=== PATIENT | female | born 1960 | race Caucasian/White ===

== ENCOUNTER 2017-03-05 16:09 | Inpatient (IN) | payer OTHER, MEDICAID ==
[~2017-03-05] VITALS: Ht 165.1 cm; Wt 88.5 kg
[2017-03-05] MEDS ORDERED: HYDROmorphone HCL 2 MG/ML VL IV ONE (18:15)
[2017-03-05] MEDS ORDERED: TETANUS-DIPTH-ACEL PERTUSSIS 0.5ML SYRG IM ONE (18:15)
[2017-03-05] MEDS ORDERED: VANCOMYCIN 1GM/250ML 250 ML IV ONE (18:15)
[2017-03-05] MEDS ORDERED: PIPERACILLIN-TAZOB 3.375GM 100 ML IV ONE (18:15)
[2017-03-05] MEDS ORDERED: ONDANSETRON HCL 4 MG/2 ML VIAL IV ONE (18:15)
[2017-03-05] MEDS ORDERED: LACTULOSE 20Gm/30ML SOLN PO PRN (18:45)
[2017-03-05] MEDS ORDERED: LORazepam 0.5 MG TAB PO PRN (18:45)
[2017-03-05] MEDS ORDERED: ALBUTEROL SULF 2.5 MG/0.5ML(0.5%) NEB SOLN NEB PRN (18:45)
[2017-03-05] MEDS ORDERED: PROMETHAZINE HCL 25 MG/ML 1ML IV PRN (18:45)
[2017-03-05] MEDS ORDERED: ACETAMINOPHEN 500 MG TAB PO PRN (18:45)
[2017-03-05] MEDS ORDERED: TEMAZEPAM 15 MG CAP PO PRN (18:45)
[2017-03-05 18:46] LABS: Basophils # (auto) 0.1 uL; Basophils % (auto) 0.9 % (0.0-2.0); Eosinophils # (auto) 0.4 uL; Eosinophils % (auto) 5.7 % (0.0-7.0); Hematocrit 42.8 % (36.0-46.0); Hemoglobin 14.1 g/dL (12.2-16.2); Lymphocytes # (auto) 2.2 uL; Lymphocytes % (auto) 30.1 % (10.0-50.0); Mean Corpuscular Hemoglobin 31.6 pg (28.0-32.0); Mean Corpuscular Hgb Conc. 32.9 g/dL (32.0-36.0); Mean Corpuscular Volume 95.9 fL (80.0-100.0); Monocytes # (auto) 0.7 uL; Monocytes % (auto) 9.9 % (0.0-12.0); Neutrophils # (auto) 3.9 uL; Neutrophils % (auto) 53.4 % (37.0-80.0); Nucleated Red Blood Cells % 0.2 %; Platelet Count (auto) 257 10^3/uL (140-450); Red Blood Cells 4.47 10^6/uL (4.0-5.20); Red Cell Distribution Width 14.5 % (11.8-14.3); White Blood Cell 7.2 10^3/uL (4.4-10.8)
[2017-03-05 19:00] LABS: BUN/Creatinine Ratio 21.6; Calcium 8.4 mg/dL (8.5-10.1)
[2017-03-05 19:02] LABS: Bilirubin, Total 0.6 mg/dL (0.2-1.0); Total Protein 7.2 g/dL (6.4-8.2)
[2017-03-05] MEDS: SODIUM CHLORIDE 0.9% 1,000 ML IV SCH (19:30)
[2017-03-05 19:44] VITALS: BP 158/99
[2017-03-05 21:00] VITALS: BP 127/73
[2017-03-05] MEDS ORDERED: cefTRIAXone 1GM/50ML D5W 50 ML IV ONE (21:00)
[2017-03-05 22:35] VITALS: BP 121/73
[2017-03-05] MEDS: CLINDAMYCIN 600MG IV 50 ML IV SCH (23:42)
[2017-03-06] MEDS: MORPHINE SULFATE 10 MG/ML INJ 1ML SDV IV PRN ×4 (01:37→11:57)
[2017-03-06 05:43] VITALS: BP 111/59
[2017-03-06] MEDS ORDERED: SODIUM CHLORIDE 0.9 % NEB SOLN 3ML NEB ONE (05:50)
[2017-03-06] MEDS: ALBUTEROL SULF 2.5 MG/0.5ML(0.5%) NEB SOLN NEB SCH ×3 (06:05→18:33)
[2017-03-06] MEDS: CLINDAMYCIN 600MG IV 50 ML IV SCH ×3 (06:44→22:20)
[2017-03-06] MEDS: SODIUM CHLORIDE 0.9% 1,000 ML IV SCH (06:45)
[2017-03-06] MEDS ORDERED: ZIPR80CA8 PO (08:18)
[2017-03-06] MEDS ORDERED: FLUT250M2 INH (08:19)
[2017-03-06] MEDS ORDERED: TRAM50TA2 PO (08:19)
[2017-03-06] MEDS ORDERED: CARI-277 PO (08:19)
[2017-03-06] MEDS ORDERED: ALPR0.25 PO (08:19)
[2017-03-06] MEDS ORDERED: cefTRIAXone 1GM/50ML D5W 50 ML IV SCH (09:00)
[2017-03-06 09:27] VITALS: BP 100/69
[2017-03-06 13:00] VITALS: BP 101/58
[2017-03-06 15:21] LABS: Basophils # (auto) 0 uL; Basophils % (auto) 0.7 % (0.0-2.0); Eosinophils # (auto) 0.3 uL; Eosinophils % (auto) 6.5 % (0.0-7.0); Hematocrit 36.8 % (36.0-46.0); Hemoglobin 12.4 g/dL (12.2-16.2); Lymphocytes # (auto) 0.8 uL; Lymphocytes % (auto) 16.4 % (10.0-50.0); Mean Corpuscular Hemoglobin 31.6 pg (28.0-32.0); Mean Corpuscular Hgb Conc. 33.6 g/dL (32.0-36.0); Monocytes # (auto) 0.2 uL; Monocytes % (auto) 3.8 % (0.0-12.0); Neutrophils # (auto) 3.5 uL; Neutrophils % (auto) 72.6 % (37.0-80.0); Nucleated Red Blood Cells % 0.1 %; Platelet Count (auto) 177 10^3/uL (140-450); Red Blood Cells 3.92 10^6/uL (4.0-5.20); Red Cell Distribution Width 14.1 % (11.8-14.3); White Blood Cell 4.8 10^3/uL (4.4-10.8)
[2017-03-06 15:33] LABS: INR 0.94 (0.9-1.15); Partial Thromboplastin Time 23.6 sec (22.64-33.71); Prothrombin Time 10.2 sec (9.37-12.3)
[2017-03-06 15:38] LABS: Calcium 7.4 mg/dL (8.5-10.1); Magnesium 2.2 mg/dL (1.6-2.6); Potassium 3.8 mmol/L (3.5-5.1)
[2017-03-06 17:21] VITALS: BP 117/70
[2017-03-06 22:31] VITALS: BP 95/62
[2017-03-07] MEDS: ALBUTEROL SULF 2.5 MG/0.5ML(0.5%) NEB SOLN NEB SCH ×2 (00:30→07:07)
[2017-03-07] MEDS: MORPHINE SULFATE 10 MG/ML INJ 1ML SDV IV PRN ×2 (00:33→14:05)
[2017-03-07] MEDS: HYDROcodone-ACET 5/325MG TAB PO PRN ×2 (00:36→08:03)
[2017-03-07 05:00] VITALS: BP 105/63
[2017-03-07] MEDS: CLINDAMYCIN 600MG IV 50 ML IV SCH ×2 (06:48→13:24)
[2017-03-07 09:00] VITALS: BP 123/78
[2017-03-07] MEDS ORDERED: ZIPRASIDONE 40 MG PO SCH ×3 (10:00→12:00)
[2017-03-07] MEDS ORDERED: BUDESONIDE (INHALATION) 0.5 MG/2 ML NEB NEB SCH ×2 (10:00)
[2017-03-07] MEDS ORDERED: HYDR-4683 PO (10:11)
[2017-03-07] MEDS ORDERED: CLIN1CAP4 PO (10:11)
[2017-03-07] MEDS ORDERED: ALBUTEROL SULF 2.5 MG/0.5ML(0.5%) NEB SOLN NEB SCH ×2 (12:00)
[2017-03-07 13:00] VITALS: BP 121/81
== END 2017-03-07 17:00 | disposition home or self-care (01) | DRG 603 ==
LOC: ER 16:11 → OVERFLOW 16:12 → CENTRAL 20:49
PROVIDERS: ADMIT Internal Medicine; ATTEND Internal Medicine
DX: L03.031 Cellulitis of right toe (principal); F32.9 Major depressive disorder, single episode, unspecified; S92.911A Unspecified fracture of right toe(s), initial encounter for closed fracture; F41.9 Anxiety disorder, unspecified; J44.9 Chronic obstructive pulmonary disease, unspecified; G89.29 Other chronic pain; M54.9 Dorsalgia, unspecified; M19.90 Unspecified osteoarthritis, unspecified site; X58.XXXA Exposure to other specified factors, initial encounter; Y93.89 Activity, other specified; Y92.89 Other specified places as the place of occurrence of the external cause; Z82.49 Family history of ischemic heart disease and other diseases of the circulatory system; Y99.8 Other external cause status
CPT/HCPCS: 36415; 73660; 80048; 80053; 83735; 85025; 85610; 85652; 85730; 87040; 90471; 90715; 94640; 96374; 96375; J0696; J2405; J2543; J3490

== ENCOUNTER 2018-05-02 12:08 | Emergency (ER) | payer OTHER, MEDICAID ==
[~2018-05-02] VITALS: Ht 165.1 cm; Wt 83.9 kg
[~2018-05-02 12:08] MED LIST: ALPR0.25 PO; CARI-277 PO; CLIN1CAP4 PO; FLUT250M2 INH; HYDR-4683 PO; ZIPR80CA8 PO
[2018-05-02 12:25] VITALS: BP 149/81
[2018-05-02] MEDS ORDERED: KETOROLAC TROMETH 60MG/2ML VIAL IM ONE (14:30)
== END 2018-05-02 14:36 | disposition home or self-care (01) ==
LOC: ER 12:08
DX: M79.675 Pain in left toe(s) (principal)
CPT/HCPCS: 96372; 99283; J1885

== ENCOUNTER → 2019-11-08 | Emergency (ER) | payer OTHER, MEDICAID ==
[~2019-11-08] VITALS: Ht 162.6 cm; Wt 93.4 kg
[~2019-11-08] MED LIST changes: +ACETAMINOPHEN/CODEINE#3 (300/30mg) TAB PO ONE; -CLIN1CAP4 PO; +CLIN300C8 PO; -HYDR-4683 PO; +HYDR-4833 PO
[2019-11-08 09:39] VITALS: BP 151/96
== END | disposition home or self-care (01) ==
LOC: ER 09:21
DX: B00.89 Other herpesviral infection (principal)

== ENCOUNTER 2022-12-11 11:04 | Emergency (ER) | payer OTHER, MEDICAID ==
[~2022-12-11] VITALS: Ht 160 cm; Wt 99.1 kg
[~2022-12-11 11:04] MED LIST changes: -ACETAMINOPHEN/CODEINE#3 (300/30mg) TAB PO ONE; +CLIN300C70 PO; -CLIN300C8 PO; +ZIPR80CA37 PO; -ZIPR80CA8 PO
[2022-12-11 12:28] LABS: Basophils # (auto) 0 10 ^3/uL (0-0.2); Eosinophils # (auto) 0.2 10 ^3/uL (0-0.8); Eosinophils % (auto) 4.1 % (0.0-7.0); Hematocrit 43.3 % (36.0-46.0); Hemoglobin 14.3 g/dL (12.2-16.2); Lymphocytes # (auto) 1.2 10 ^3/uL (0.4-5.4); Lymphocytes % (auto) 26.7 % (10.0-50.0); Mean Corpuscular Hgb Conc. 32.9 g/dL (32.0-36.0); Mean Corpuscular Volume 91.1 fL (80.0-100.0); Monocytes # (auto) 0.4 10 ^3/uL (0-1.3); Monocytes % (auto) 8.4 % (0.0-12.0); Neutrophils # (auto) 2.7 10 ^3/uL (1.6-8.6); Neutrophils % (auto) 59.8 % (37.0-80.0); Nucleated Red Blood Cells % 0.2 %; Red Blood Cells 4.75 10^6/uL (4.0-5.20); White Blood Cell 4.5 10^3/uL (4.4-10.8)
[2022-12-11 13:07] LABS: Calcium 8.9 mg/dL (8.5-10.1); Potassium 4.4 mmol/L (3.5-5.1)
[2022-12-11 13:12] LABS: BUN/Creatinine Ratio 13.4 (10.0-20.0); Bilirubin, Total 0.4 mg/dL (0.2-1.0); Total Protein 7.1 g/dL (6.4-8.2)
[2022-12-11] MEDS ORDERED: CARISOPRODOL 350 MG TAB PO ONE (13:30)
[2022-12-11 14:31] VITALS: BP 138/84; PULSE 87; RESP 20; TEMP 98.4; O2SAT 96
== END 2022-12-11 14:37 | disposition home or self-care (01) ==
LOC: ER 11:04
DX: G89.4 Chronic pain syndrome (principal); M54.50 Low back pain, unspecified; F12.10 Cannabis abuse, uncomplicated
CPT/HCPCS: 36415; 80053; 85025